=== PATIENT | female | born 1945 | race African-American/Black ===

== ENCOUNTER 2018-11-29 06:08 | Day surgery (SDC) | payer OTHER ==
[2018-11-27 13:38] VITALS: BMI 27.8
[2018-11-29] MEDS ORDERED: BUPIVACAINE HCL/PF 0.5% (5 MG/ML) 30 ML VIAL IJ ONE ×2 (07:19→08:05)
[2018-11-29] MEDS ORDERED: DEXAMETHASONE SOD PHOSPHATE 4 MG/1 ML VIAL ONE (07:19)
[2018-11-29] MEDS ORDERED: LIDOCAINE HCL 2% 100 MG/5 ML DISP.SYRIN ONE (07:20)
[2018-11-29] MEDS ORDERED: LIDOCAINE HCL 2% (20ML MULTI-DOSE VIAL) NR ONE ×2 (07:20→07:21)
[2018-11-29] MEDS ORDERED: MIDAZOLAM HCL 2 MG/2 ML SINGLE DOSE VIAL ONE (07:33)
[2018-11-29] MEDS ORDERED: PROPOFOL 20 ML ONE ×2 (07:33→08:43)
--- NOTE | 2018-11-29 07:46 | HP ---
HISTORY OF PRESENT ILLNESS Patient is a 73 year old female with a significant past medical history of hypertension, HLD, uterine polyps, tonsillectomy, strokes x 2 (june 2014 and december 2014) with no deficits. Patient presents to [facility] for an elective right/left foot hammertoe surgery. Patient is awake, alert and in no acute distress. Answering questions appropriately. She is on ASA 81mg daily, last took it on 11/26/2018. She took Coreq 12.5mg at 5:30a.m, otherwise has been NPO since midnight. PCP: Alf Marie MD home meds: coreq 12.5mg bid vitamin d3 5000 units simvastatin 40mg daily norvasc 10mg daily asa 81mg daily aldactone 25mg daily Recent travel: none Family History: lives with family Smoking: denies Alcohol: denies Drugs: denies REVIEW OF SYSTEMS CONSTITUTIONAL: Absent: fever, chills, diaphoresis, generalized weakness, malaise, loss of appetite, weight change HEENT: Absent: rhinorrhea, nasal congestion, throat pain, throat swelling, difficulty swallowing, mouth swelling, ear pain, eye pain, visual changes CARDIOVASCULAR: Absent: chest pain, syncope, palpitations, irregular heart rate, lightheadedness , peripheral edema RESPIRATORY: Absent: cough, shortness of breath, dyspnea with exertion, orthopnea, wheezing, stridor, hemoptysis GASTROINTESTINAL: Absent: abdominal pain, abdominal distension, nausea, vomiting, diarrhea, constipation, melena, hematochezia GENITOURINARY: Absent: dysuria, frequency, urgency, hesitancy, hematuria, flank pain, genital pain MUSCULOSKELETAL: Absent: myalgia, arthralgia, joint swelling, back pain, neck pain SKIN: Absent: rash, itching, pallor HEMATOLOGIC/IMMUNOLOGIC: Absent: easy bleeding, easy bruising, lymphadenopathy, frequent infections ENDOCRINE: Absent: unexplained weight gain, unexplained weight loss, heat intolerance, cold intolerance NEUROLOGIC: Absent: headache, focal weakness or paresthesias, dizziness, unsteady gait, seizure, mental status changes, bladder or bowel incontinence PSYCHIATRIC: Absent: anxiety, depression, suicidal or homicidal ideation, hallucinations. PHYSICAL EXAMINATION: Vital Signs Temperature 98.3 F 11/29/18 06:34 Pulse Rate 78 11/29/18 06:34 Respiratory Rate 16 11/29/18 06:34 Blood Pressure 142/77 11/29/18 06:34 O2 Sat by Pulse Oximetry (%) 100 11/29/18 06:34 GENERAL: Awake, alert, and fully oriented, in no acute distress. HEAD: Normal with no signs of trauma. EYES: Pupils equal, round and reactive to light, extraocular movements intact, sclera anicteric, conjunctiva clear. No lid lag. EARS, NOSE, THROAT: Ears normal, nares patent, oropharynx clear without exudates. Moist mucous membranes. NECK: Normal range of motion, supple without lymphadenopathy, JVD, or masses. LUNGS: Breath sounds equal, clear to auscultation bilaterally. No wheezes, and no crackles. No accessory muscle use. HEART: Regular rate and rhythm, normal S1 and S2 without murmur, rub or gallop. ABDOMEN: Soft, nontender, not distended, normoactive bowel sounds, no guarding, no rebound, no masses. No hepatomegaly or splenomegaly. MUSCULOSKELETAL: Normal range of motion at all joints. No bony deformities or tenderness. No CVA tenderness. UPPER EXTREMITIES: 2+ pulses, warm, well-perfused. No cyanosis. No clubbing. No peripheral edema. LOWER EXTREMITIES: no edema, painful right foot NEUROLOGICAL: Cranial nerves II-XII intact. Normal speech. Normal gait. PSYCHIATRIC: Cooperative. Good eye contact. Appropriate mood and affect. SKIN: Warm, dry, normal turgor, no rashes or lesions noted, normal capillary refill. ASSESSMENT/PLAN: Patient for [facility] surgical repair Problem List - Problem (1) Hypertension Assessment/Plan: took coreq 12.5mg bid at 5:30 a.m. did not take norvasc this morning. monitor bp Code(s): I10 - ESSENTIAL (PRIMARY) HYPERTENSION (2) Hx TIA/stroke w/o resid Assessment/Plan: asa once cleared by surgery neurology follow up outpatient Code(s): Z86.73 - PRSNL HX OF TIA (TIA), AND CEREB INFRC W/O RESID DEFICITS (3) Hammertoe, bilateral Assessment/Plan: for surgery today Code(s): M20.41 - OTHER HAMMER TOE(S) (ACQUIRED), RIGHT FOOT; M20.42 - OTHER HAMMER TOE(S) (ACQUIRED), LEFT FOOT
[2018-11-29] MEDS ORDERED: ceFAZolin SODIUM 1 GM VIAL IVPB ONE (08:00)
[2018-11-29] MEDS ORDERED: ceFAZolin SODIUM 1 GM VIAL ONE (08:02)
[2018-11-29] MEDS ORDERED: ONDANSETRON 4 MG/2 ML VIAL ONE (08:02)
[2018-11-29] MEDS ORDERED: LIDOCAINE HCL 1%, 10 MG/ML (20ML VIAL) NR ONE (08:05)
[2018-11-29] MEDS ORDERED: oxyCODONE HCL 5 MG TABLET PO PRN (09:25)
--- NOTE | 2018-11-29 09:34 | OP ---
Operative Note - Note: Operative Date: 11/29/18 Pre-Operative Diagnosis: Painful Hammertoes 2,3,4 Right and four Left Operation: Proximal and Distal Interphalangeal arthroplasty 4th digits both feet with .035 K wire fixation. Tenotomy and Capsulotomy 2 and 3 Right Findings: Contracted and painful hammertoes Implants: .035 K wire 4th bilateral Surgeon: Prabhjot Hobbs Appeals Writer: Esha Pedro Anesthesia: MAC Specimens Removed: Bone fourth digits bilateral Estimated Blood Loss (mls): 1 Operative Report Dictated: Yes
[2018-11-29 13:23] VITALS: BP 122/76; PULSE 68; TEMP 97.9
--- NOTE | 2018-12-03 11:33 | PATH ---
Surgical Pathology Report Patient Name: IRISH MODI [facility]. Rec. #: [id number] /Age/Gender: 1945 (Age: 73) / F Account: [id number] Location: [facility] SURGICAL Taken: 11/29/2018 Received: 11/29/2018 Reported: 12/03/2018 Physicians: Prabhjot Hobbs DPM Specimen(s) Received A: SKIN AND BONES OF 4TH TOE, RIGHT FOOT B: SKINE AND BONES OF 4TH TOE, LEFT FOOT Clinical History Hammer toes, bilaterally Final Diagnosis A. SKIN AND BONE, 4TH TOE, RIGHT FOOT, EXCISION: PORTIONS OF BONE WITH FATTY MARROW SHOWING FOCAL DEGENERATIVE CHANGE. SEGMENT OF ACRAL SKIN WITH NO SIGNIFICANT PATHOLOGIC CHANGE. B. SKIN AND BONE, 4TH TOE, LEFT FOOT, EXCISION: PORTIONS OF BONE WITH FATTY MARROW SHOWING FOCAL DEGENERATIVE CHANGE. SEGMENT OF ACRAL SKIN WITH NO SIGNIFICANT PATHOLOGIC CHANGE. Electronically Signed Bertrand Agosto M.D. Gross Description A. Received in formalin labeled "skin and bone 4th toe, right foot" are 2 white-zapien, bone fragments which measure 1.5 x 1.5 x 0.7 and 1 x 0.7 x 0.7 cm. A separately submitted 3 x 0.5 x 0.5 cm zapien, skin ellipse is identified Airline Hostess sections are submitted in one cassette after a brief decalcification. B. Received in formalin labeled "skin and bone 4th toe, left foot" are 2 white-zapien, bone fragments which measure 1.5 x 1.5 x 0.7 and 1 x 1 x 0.7 cm. A separately submitted 3.5 x 0.4 x 0.3 cm zapien, skin ellipse is identified Airline Hostess sections are submitted in one cassette after a brief decalcification. MLSZ/11/30/2018 sanml/11/30/2018
--- NOTE | 2018-12-20 14:22 | OP ---
DATE OF OPERATION: 11/29/2018 DESCRIPTION OF PROCEDURE: At this time, both feet were identified, and the 4th digit of both feet received the same procedure. The procedure for the 4th digit of both feet is as follows: Proximal and distal interphalangeal joint arthroplasty with insertion of 0.035 Eliza wire fixation. On both 4th toes, attention was drawn to the dorsal aspect. Two 3.0-cm semielliptical incisions were made centered over the middle phalanx. The incisions were deepened down to the level of the extensor tendon. The proximal and distal interphalangeal joints were identified. A transverse tenotomy and capsulotomy was performed at the proximal and distal interphalangeal joints of both feet. Collateral ligaments were severed on the proximal and distal interphalangeal joints of the 4th digit of both feet. The head of the proximal phalanx and the head of the middle phalanx were delivered into the surgical wound. Using a double action bone forceps, the proximal and distal pharyngeal heads were removed in toto. All rough edges were examined and smoothed. A copious flush of normal saline was introduced. Two 0.035 Eliza wires were attained. The 0.035 K-wire was introduced into the distal interphalangeal joint of both 4th digits . The same Eliza wire was then retrograded into the proximal phalanx and into the metatarsal head fixating both 4th digits in a rectus and corrected position. Extensor tendons were reapproximated with 3-0 Vicryl. Skin was approximated with 4-0 nylon. Attention was now drawn to the 2nd and 3rd digits of the right foot. Extensor tenotomy and capsulotomy was performed at the level of the metatarsophalangeal joints. Flexor tenotomy was performed on the plantar aspect at the proximal interphalangeal joint. The toes were straightened. Postoperatively, dexamethasone phosphate was installed. Adaptic and Betadine along with dry, sterile dressings were applied. The patient tolerated the procedure well and will be seen in my office in 1 week. JESUS VELAZQUEZ/[id number]
== END 2018-11-29 13:30 | disposition home or self-care (01) ==
LOC: JASU-SURG 06:08
PROVIDERS: ATTEND Podiatrist
PROC: 0LN Tendons, Release (ICD-10-PCS; 2018-11-29)
PROC: 0SNP0ZZ Release Right Toe Phalangeal Joint, Open Approach (ICD-10-PCS; 2018-11-29)
PROC: 0SNP0ZZ Release Right Toe Phalangeal Joint, Open Approach (ICD-10-PCS; 2018-11-29)
PROC: 0LNM0ZZ Release Left Upper Leg Tendon, Open Approach (ICD-10-PCS; principal; 2018-11-29 07:30)
DX: M20.42 Other hammer toe(s) (acquired), left foot (principal); M20.41 Other hammer toe(s) (acquired), right foot
CPT/HCPCS: 73630-TC-LT; 73630-TC-RT-FY; 88304-TC; 88311-TC